=== PATIENT | male | born 1980 | race African-American/Black ===

== ENCOUNTER 2017-07-11 11:02 | Emergency (ER) | payer SELFPAY ==
[2017-07-11] MEDS ORDERED: Ibuprofen 800 MG TAB ONE (11:33)
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
== END 2017-07-11 11:44 | disposition home or self-care (01) ==
LOC: NAV ERS 11:02
DX: S60.221A Contusion of right hand, initial encounter (principal); I10 Essential (primary) hypertension; F17.200 Nicotine dependence, unspecified, uncomplicated; Z79.899 Other long term (current) drug therapy; Y04.0XXA Assault by unarmed brawl or fight, initial encounter

== ENCOUNTER 2017-08-03 11:17 | Outpatient (CLI) | payer OTHER | END 2017-08-03 11:18 | disposition home or self-care (01) | LOC: NAV LAB 11:17 | PROVIDERS: ATTEND Pathology Anatomic Pathology & Clinical Pathology | DX: Z02.1 Encounter for pre-employment examination (principal) | CPT/HCPCS: 99001 ==

== ENCOUNTER 2018-02-19 07:04 | Emergency (ER) | payer BC, SELFPAY ==
[2018-02-19] MEDS ORDERED: Lidocaine 1% (PF) 30 ML VIAL ONE (07:50)
--- NOTE | 2018-02-19 09:38 | RAD ---
LEFT LITTLE FINGER 3 VIEWS: HISTORY: Post reduction. FINDINGS: The dislocation at the PIP joint has been reduced. No associated fracture. IMPRESSION: Reduction of the dislocation of the proximal interphalangeal joint. POS: [facility]
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
== END 2018-02-19 08:27 | disposition home or self-care (01) ==
LOC: NAV ERS 07:04
DX: S63.287A Dislocation of proximal interphalangeal joint of left little finger, initial encounter (principal); Z79.899 Other long term (current) drug therapy; W22.8XXA Striking against or struck by other objects, initial encounter
CPT/HCPCS: 26770; J2001

== ENCOUNTER 2018-02-27 08:45 | Emergency (ER) | payer BC ==
[2018-02-27] MEDS ORDERED: Lidocaine 1% w/Epinephrine 1:100K 30 ML VIAL ONE (09:31)
[2018-02-27] MEDS ORDERED: Lidocaine 1% (PF) 30 ML VIAL ONE (09:32)
--- NOTE | 2018-02-27 10:01 | RAD ---
LEFT FINGER 3 VIEWS: HISTORY: Fifth digit pain. COMPARISON: Radiograph 02/19/2018. FINDINGS: There is a dorsal displacement with minimal proximal migration of the small finger proximal interphal angeal joint. The distal interphalangeal joint is intact. IMPRESSION: Volar displacement of a small finger proximal interphalangeal joint dislocation. POS: [facility]
[2018-02-27] MEDS ORDERED: Ibuprofen 800 MG TAB ONE (10:20)
--- NOTE | 2018-02-27 10:35 | RAD ---
RADIOGRAPH LEFT 5TH DIGIT TWO VIEWS: Date: 02-27-18 Time: 9:51 a.m. History: 38-year-old male status post reduction of acute, traumatic dislocation of left fifth proximal interph alangeal joint. Comparison: 02-27-18 at 9:15 a.m. FINDINGS: The left fifth PIP is now located. There is no fracture visible. IMPRESSION: Successful reduction of the acutely, traumatically dislocated left fifth proximal interphalangeal patricia shepard. POS: [facility]
== END 2018-02-27 10:20 | disposition home or self-care (01) ==
LOC: NAV ERS 08:45
DX: S63.287A Dislocation of proximal interphalangeal joint of left little finger, initial encounter (principal); F32.9 Major depressive disorder, single episode, unspecified; I10 Essential (primary) hypertension; F17.210 Nicotine dependence, cigarettes, uncomplicated; Z79.899 Other long term (current) drug therapy; W22.8XXA Striking against or struck by other objects, initial encounter
CPT/HCPCS: 26770; J2001